=== PATIENT | female | born 1975 | race Hispanic/Latino ===

== ENCOUNTER 2021-06-18 17:10 | Emergency (ER) | payer OTHER ==
[~2021-06-18] VITALS: Ht 157.5 cm; Wt 53.3 kg
[2021-06-18] MEDS ORDERED: IBUPROFEN 600 MG TAB PO STA (17:29)
[2021-06-18] MEDS ORDERED: IBUPROFEN 600 MG TAB ONE (17:44)
[2021-06-18] MEDS ORDERED: IBUPROFEN600 MG PO (18:46)
[2021-06-18] MEDS ORDERED: CYCLOBENZAPRINE5 MG PO (18:46)
[2021-06-18 20:00] VITALS: BP 139/89
== END 2021-06-18 20:00 | disposition home or self-care (01) ==
LOC: FSED 17:20
DX: S00.83XA Contusion of other part of head, initial encounter (principal); S30.0XXA Contusion of lower back and pelvis, initial encounter; M54.2 Cervicalgia; S70.02XA Contusion of left hip, initial encounter; S70.01XA Contusion of right hip, initial encounter; W18.39XA Other fall on same level, initial encounter; Y93.01 Activity, walking, marching and hiking; Y92.89 Other specified places as the place of occurrence of the external cause; E11.9 Type 2 diabetes mellitus without complications
CPT/HCPCS: 72100; 72170; 72220; 99282